=== PATIENT | male | born 2005 | race Caucasian/White ===

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

== ENCOUNTER 2024-03-31 02:24 | Emergency (ER) | payer OTHER ==
[~2024-03-31] VITALS: Ht 175.3 cm; Wt 68.0 kg
[2024-03-31] MEDS: IPRATROPIUM 0.5MG/ALBUTEROL 2.5MG INH SOL UD 3ML (DUONEB) NEB ONE ×3 (05:45→10:54)
[2024-03-31] MEDS: ACETAMINOPHEN 500 MG TAB PO ONE (06:57)
[2024-03-31] MEDS: NS (Normal Saline) 0.9% 1,000 ML IV ONE (07:26)
[2024-03-31] MEDS: methylPREDNISolone 125MG 2ML VIAL IV ONE (07:27)
[2024-03-31] MEDS: KETOROLAC 30 MG/ML 1ML VIAL IV ONE (08:29)
[2024-03-31 08:43] LABS: BLOOD UREA NITROGEN 10 MG/DL (9-23); CALCIUM LEVEL 9.8 MG/DL (8.5-10.1); CARBON DIOXIDE LEVEL 24 MMOL/L (20-31); CHLORIDE LEVEL 107 MMOL/L (98-107); CREATININE FOR GFR 0.73 MG/DL (0.70-1.30); GLUCOSE, FASTING 96 MG/DL (60-100); POTASSIUM SERUM 4.1 MMOL/L (3.5-5.1); SODIUM LEVEL 141 MMOL/L (136-145)
[2024-03-31 08:47] LABS: CPK CREATINE PHOSPHOKINASE 205 U/L (46-171); MB/CK RELATIVE INDEX 0.48 (< OR =4)
[2024-03-31 08:58] LABS: BASO # 0.1 10^3/uL (0.0-0.2); BASO % 0.6 % (0.0-1.0); EOS # 0.6 10^3/uL (0.0-0.5); EOS % 4.6 % (0.0-3.0); HEMATOCRIT 42.1 % (42.0-52.0); HEMOGLOBIN 14.6 g/dl (13.5-17.5); LYMPH # 1.3 10^3/uL (1.5-5.0); LYMPH % 10.7 % (24.0-44.0); MEAN CORPUSCULAR HEMOGLOBIN 30.1 pg (27.0-33.0); MEAN CORPUSCULAR HGB CONC 34.7 g/dl (32.0-36.5); MEAN CORPUSCULAR VOLUME 86.8 fl (80.0-96.0); MONO # 0.6 10^3/uL (0.0-0.8); MONO % 5.2 % (2.0-8.0); NEUTROPHILS # 9.4 10^3/uL (1.5-8.5); NEUTROPHILS % 78.6 % (36.0-66.0); RED BLOOD COUNT 4.85 10^6/uL (4.30-6.10)
[2024-03-31 10:26] LABS: CK-MB VALUE MASS < 1.0 NG/ML (<3.6)
[2024-03-31 10:40] LABS: CPK CREATINE PHOSPHOKINASE 171 U/L (46-171); MB/CK RELATIVE INDEX 0.58 (< OR =4)
[2024-03-31 11:13] VITALS: O2SAT 97
[2024-03-31] MEDS ORDERED: PROA1AER2 INH (11:34)
[2024-03-31] MEDS ORDERED: PRED20TA PO (11:34)
[2024-03-31] MEDS ORDERED: ALB2.5NEB NEB (11:34)
[2024-03-31 11:40] VITALS: BP 127/69; TEMP 97.7; O2SAT 96
[2024-03-31] MEDS ORDERED: AERO1MIS2 XX (11:44)
== END 2024-03-31 11:40 | disposition home or self-care (01) ==
LOC: M ED 02:24
DX: J45.901 Unspecified asthma with (acute) exacerbation (principal); J00 Acute nasopharyngitis [common cold]; R94.31 Abnormal electrocardiogram [ECG] [EKG]; R79.89 Other specified abnormal findings of blood chemistry; Z87.891 Personal history of nicotine dependence; Z79.51 Long term (current) use of inhaled steroids; Z79.52 Long term (current) use of systemic steroids
CPT/HCPCS: 71046; 80048; 82550; 82553; 84484; 85025; 87486; 87581; 87633; 87798; 93005; 93041; 94640; 94760; 96361; 96374; 96375; 99285; J1885; J2919